=== PATIENT | female | born 1990 | race Caucasian/White ===

== ENCOUNTER 2018-03-28 18:30 | Emergency (ER) | payer SELFPAY ==
--- NOTE | 2018-03-28 18:36 | ED.SKABFB ---
HPI - Skin/Abscess/Foreign Bdy <LEXI Erwin - Last Filed: 03/28/18 22:37> General Chief complaint: Skin/Abscess/Foreign Body Stated complaint: ABCESSES UNDER LEFT ARM Time Seen by Provider: 03/28/18 18:36 History of Present Illness HPI narrative: 27-year-old female here for complaint of having red sore a bumps to her left axillary area over the past 3 days. She reports that she has had purulent drainage from that area over the past couple of days. No trauma to the area that she knows of. She denies any previous history of having abscesses. She denies any fevers or chills. Positive p.o. intake no nausea or vomiting. She denies any other complaints. Increased pain with movement of the left arm and palpation to left axillary area. Related Data Previous Rx's Medication Instructions Recorded meloxicam [Mobic] 7.5 mg PO BIDCC PRN #12 tab 10/20/17 clindamycin HCl 300 mg PO QID #27 cap 03/28/18 hydrocodone-acetaminophen [Centuria] 1 tab PO Q4-6H PRN #5 tab 03/28/18 Allergies Allergy/AdvReac Type Severity Reaction Status Date / Time No Known Drug Allergies Allergy Verified 03/28/18 18:54 Review of Systems <LEXI Erwin - Last Filed: 03/28/18 22:37> Constitutional Denies chills, Denies fever(s), Denies lethargy and Denies weakness Eyes Denies change in vision, Denies eye discharge, Denies irritation and Denies loss of vision ENT Ears, Nose, Mouth, and Throat: Denies change in voice, Denies neck pain and Denies sore throat Cardiovascular Denies chest pain, Denies irregular heart rhythm, Denies lightheadedness, Denies palpitations, Denies dyspnea, Denies dyspnea on exertion and Denies orthopnea Respiratory Denies cough, Denies dyspnea, Denies dyspnea on exertion and Denies wheezing Gastrointestinal Gastrointestinal: Denies abdominal pain, Denies change in bowel habits, Denies diarrhea, Denies nausea and Denies vomiting Genitourinary Denies hematuria, Denies flank pain, Denies urinary incontinence and Denies urinary urgency Musculoskeletal Denies neck pain Integumentary/Breasts Comments: Abscess to left axillary area Neurologic Denies confusion, Denies loss of vision and Denies weakness Psychiatric Denies anxiety, Denies confusion, Denies depression, Denies homicidal ideation and Denies suicidal ideation Endocrine Denies palpitations Allergic/Immunologic Denies wheezing Exam <LEXI Erwin - Last Filed: 03/28/18 22:37> Initial Vital Signs Initial Vital Signs: Vital Signs Temperature 98.4 F 03/28/18 18:47 Pulse Rate 95 H 03/28/18 18:47 Respiratory Rate 14 03/28/18 18:47 Blood Pressure 128/72 H 03/28/18 18:47 Pulse Oximetry 99 03/28/18 18:47 Const General: cooperative and well developed Nutritional Appearance: well nourished Orientation: alert, awake, oriented x3 and not confused HENCT Mouth: oral mucosae normal and moist mucous membranes Eyes General: appearance normal, both eyes and all related structures Eyelids: eyelids normal Conjunctivae: conjunctivae normal Sclera: sclerae normal Pupils: PERRL EOM: EOM intact bilaterally Resp Effort & Inspection: normal respiratory effort, able to speak in complete sentences, no respiratory distress and no use of accessory muscles Auscultation: clear to auscultation bilaterally, no rales, no rhonchi and no wheezes Cardio Rate: regular rate Rhythm: regular rhythm Heart Sounds: no click, no gallops, no murmurs and no rubs Pulses: normal peripheral pulses Skin General: No jaundice and No petechiae Other: Left axillary area with a few pustules noted on exam with erythema. Loculated area of induration and fluctuance palpated to the axillary area. Distal sensation is intact. Distal range of motion is intact. Distal pulses are intact. Area of loculation as approximately 3 by 4 cm. Two pustules approximately 1 cm each in the center of the loculation Neuro General: alert, oriented x3, gait normal and no focal motor deficits Speech: speech normal <Oriana Torres DO - Last Filed: 03/29/18 00:24> Initial Vital Signs Initial Vital Signs: Vital Signs Temperature 98.4 F 03/28/18 18:47 Pulse Rate 95 H 03/28/18 18:47 Respiratory Rate 14 03/28/18 18:47 Blood Pressure 128/72 H 03/28/18 18:47 Pulse Oximetry 99 03/28/18 18:47 Procedures <LEXI Erwin - Last Filed: 03/28/18 22:37> Abscess I/D Site: other (Axilla) Side (if applicable): left Local Anesthetic: lidocaine 1% Amount of anesthesia used (mL): 3.5 Technique: incised with #11 blade Amount of fluid expressed (mL): 6 Irrigation: Yes Packing used?: none Complications: pain Course <LEXI Erwin - Last Filed: 03/28/18 22:37> Orders Ordered: ED Orders 03/28/18 19:50 Wound Culture and Gram Stain Stat Discontinued Medications Hydrocodone Bitart/Acetaminophen (Centuria 5/325) 1 tab PO NOW ONE Stop: 03/28/18 19:29 Last Admin: 03/28/18 19:29 Dose: 1 tab Clindamycin HCl (Cleocin) 300 mg PO NOW ONE Stop: 03/28/18 20:05 Last Admin: 03/28/18 20:09 Dose: 300 mg Vital Signs - 8 hr 03/28/18 18:47 03/28/18 18:54 03/28/18 20:28 Temperature 98.4 F 98.4 F Pulse Rate 95 H 95 H 81 Respiratory Rate 14 14 16 Blood Pressure 123/74 H Blood Pressure [Right Arm] 128/72 H Pulse Oximetry 99 99 100 <Oriana Torres DO - Last Filed: 03/29/18 00:24> Orders Ordered: ED Orders 03/28/18 19:50 Wound Culture and Gram Stain Stat Discontinued Medications Hydrocodone Bitart/Acetaminophen (Centuria 5/325) 1 tab PO NOW ONE Stop: 03/28/18 19:29 Last Admin: 03/28/18 19:29 Dose: 1 tab Clindamycin HCl (Cleocin) 300 mg PO NOW ONE Stop: 03/28/18 20:05 Last Admin: 03/28/18 20:09 Dose: 300 mg Vital Signs - 8 hr 03/28/18 18:47 03/28/18 18:54 03/28/18 20:28 Temperature 98.4 F 98.4 F Pulse Rate 95 H 95 H 81 Respiratory Rate 14 14 16 Blood Pressure 123/74 H Blood Pressure [Right Arm] 128/72 H Pulse Oximetry 99 99 100 MDM - Skin/Abscess/Foreign Bdy <LEXI Erwin - Last Filed: 03/28/18 22:37> [facility] Narrative Medical decision making narrative: Abscesses to the left axillary area were opened with a 11. Blade. Culture was obtained and is pending. Medium amount of purulent drainage was removed. Culture was obtained and is pending. She is placed on clindamycin. Recommend follow up with primary care provider later this week for re-evaluation to ensure is improving and not worsening. [id number] Tylenol Motrin as needed for any discomfort. Small amount of Centuria is prescribed for breakthrough pain. For any worsening symptoms return to the emergency room. Discharge Plan Departure Patient Disposition: Home, Self-Care Clinical Impression: Abscess of axilla, left Discharge Date/Time: 03/28/18 20:32 Interventions: ED Discharge Assessment Last Done: 03/28/18 20:28 Instructions: DI for Skin Abscess Activity Restrictions/Additional Instructions: Abscess to the left armpit area was incised and drained today to remove the purulent material. You have been placed on an antibiotic called clindamycin use as directed. Follow up with her primary care provider in the next few days for re-evaluation. Warm moist compresses to the area couple times a day for the next couple of days use [id number] Tylenol or Motrin as needed for any discomfort. Small amount of Centuria is prescribed for breakthrough pain use as directed no driving while on the Centuria. For any worsening symptoms return to the emergency room. Prescriptions: New clindamycin HCl 300 mg capsule 300 mg PO QID Qty: 27 RF: 0 hydrocodone-acetaminophen [Centuria] 5-325 mg tablet 1 tab PO Q4-6H PRN (Reason: pain) Qty: 5 RF: 0 No Action meloxicam [Mobic] 7.5 MG tablet 7.5 mg PO BIDCC PRNQty: 12 RF: 0 Referrals: [facility] [Provider Group] <Oriana Torres DO - Last Filed: 03/29/18 00:24> Cosign ED Attending Kaeature Attestation: I was immediately available in the department for consultation. Documentation has been reviewed. I agree with assessment and plan.
[2018-03-28 18:47] VITALS: BP 128/72; PULSE 95; RESP 14; TEMP 36.9; O2SAT 99
[2018-03-28 18:54] VITALS: PULSE 95; RESP 14; TEMP 36.9; O2SAT 99; BMI 31.4
[2018-03-28] MEDS: HYDROCODONE/ACET 5/325 TABLET 1 TAB PO (19:29)
--- NOTE | 2018-03-28 20:03 | ED_ITS ---
HPI - Skin/Abscess/Foreign Bdy <LEXI Erwin - Last Filed: 03/28/18 22:37> General Chief complaint: Skin/Abscess/Foreign Body Stated complaint: ABCESSES UNDER LEFT ARM Time Seen by Provider: 03/28/18 18:36 History of Present Illness HPI narrative: 27-year-old female here for complaint of having red sore a bumps to her left axillary area over the past 3 days. She reports that she has had purulent drainage from that area over the past couple of days. No trauma to the area that she knows of. She denies any previous history of having abscesses. She denies any fevers or chills. Positive p.o. intake no nausea or vomiting. She denies any other complaints. Increased pain with movement of the left arm and palpation to left axillary area. Related Data Previous Rx's Medication Instructions Recorded meloxicam [Mobic] 7.5 mg PO BIDCC PRN #12 tab 10/20/17 clindamycin HCl 300 mg PO QID #27 cap 03/28/18 hydrocodone-acetaminophen [[place]] 1 tab PO Q4-6H PRN #5 tab 03/28/18 Allergies Allergy/AdvReac Type Severity Reaction Status Date / Time No Known Drug Allergies Allergy Verified 03/28/18 18:54 Review of Systems <LEXI Erwin - Last Filed: 03/28/18 22:37> Constitutional Denies chills, Denies fever(s), Denies lethargy and Denies weakness Eyes Denies change in vision, Denies eye discharge, Denies irritation and Denies loss of vision ENT Ears, Nose, Mouth, and Throat: Denies change in voice, Denies neck pain and Denies sore throat Cardiovascular Denies chest pain, Denies irregular heart rhythm, Denies lightheadedness, Denies palpitations, Denies dyspnea, Denies dyspnea on exertion and Denies orthopnea Respiratory Denies cough, Denies dyspnea, Denies dyspnea on exertion and Denies wheezing Gastrointestinal Gastrointestinal: Denies abdominal pain, Denies change in bowel habits, Denies diarrhea, Denies nausea and Denies vomiting Genitourinary Denies hematuria, Denies flank pain, Denies urinary incontinence and Denies urinary urgency Musculoskeletal Denies neck pain Integumentary/Breasts Comments: Abscess to left axillary area Neurologic Denies confusion, Denies loss of vision and Denies weakness Psychiatric Denies anxiety, Denies confusion, Denies depression, Denies homicidal ideation and Denies suicidal ideation Endocrine Denies palpitations Allergic/Immunologic Denies wheezing Exam <LEXI Erwin - Last Filed: 03/28/18 22:37> Initial Vital Signs Initial Vital Signs: Vital Signs Temperature 98.4 F 03/28/18 18:47 Pulse Rate 95 H 03/28/18 18:47 Respiratory Rate 14 03/28/18 18:47 Blood Pressure 128/72 H 03/28/18 18:47 Pulse Oximetry 99 03/28/18 18:47 Const General: cooperative and well developed Nutritional Appearance: well nourished Orientation: alert, awake, oriented x3 and not confused HENWY Mouth: oral mucosae normal and moist mucous membranes Eyes General: appearance normal, both eyes and all related structures Eyelids: eyelids normal Conjunctivae: conjunctivae normal Sclera: sclerae normal Pupils: PERRL EOM: EOM intact bilaterally Resp Effort & Inspection: normal respiratory effort, able to speak in complete sentences, no respiratory distress and no use of accessory muscles Auscultation: clear to auscultation bilaterally, no rales, no rhonchi and no wheezes Cardio Rate: regular rate Rhythm: regular rhythm Heart Sounds: no click, no gallops, no murmurs and no rubs Pulses: normal peripheral pulses Skin General: No jaundice and No petechiae Other: Left axillary area with a few pustules noted on exam with erythema. Loculated area of induration and fluctuance palpated to the axillary area. Distal sensation is intact. Distal range of motion is intact. Distal pulses are intact. Area of loculation as approximately 3 by 4 cm. Two pustules approximately 1 cm each in the center of the loculation Neuro General: alert, oriented x3, gait normal and no focal motor deficits Speech: speech normal <Oriana Torres DO - Last Filed: 03/29/18 00:24> Initial Vital Signs Initial Vital Signs: Vital Signs Temperature 98.4 F 03/28/18 18:47 Pulse Rate 95 H 03/28/18 18:47 Respiratory Rate 14 03/28/18 18:47 Blood Pressure 128/72 H 03/28/18 18:47 Pulse Oximetry 99 03/28/18 18:47 Procedures <LEXI Erwin - Last Filed: 03/28/18 22:37> Abscess I/D Site: other (Axilla) Side (if applicable): left Local Anesthetic: lidocaine 1% Amount of anesthesia used (mL): 3.5 Technique: incised with #11 blade Amount of fluid expressed (mL): 6 Irrigation: Yes Packing used?: none Complications: pain Course <LEXI Erwin - Last Filed: 03/28/18 22:37> Orders Ordered: ED Orders 03/28/18 19:50 Wound Culture and Gram Stain Stat Discontinued Medications Hydrocodone Bitart/Acetaminophen ([place] 5/325) 1 tab PO NOW ONE Stop: 03/28/18 19:29 Last Admin: 03/28/18 19:29 Dose: 1 tab Clindamycin HCl (Cleocin) 300 mg PO NOW ONE Stop: 03/28/18 20:05 Last Admin: 03/28/18 20:09 Dose: 300 mg Vital Signs - 8 hr 03/28/18 18:47 03/28/18 18:54 03/28/18 20:28 Temperature 98.4 F 98.4 F Pulse Rate 95 H 95 H 81 Respiratory Rate 14 14 16 Blood Pressure 123/74 H Blood Pressure [Right Arm] 128/72 H Pulse Oximetry 99 99 100 <Oriana Torres DO - Last Filed: 03/29/18 00:24> Orders Ordered: ED Orders 03/28/18 19:50 Wound Culture and Gram Stain Stat Discontinued Medications Hydrocodone Bitart/Acetaminophen ([place] 5/325) 1 tab PO NOW ONE Stop: 03/28/18 19:29 Last Admin: 03/28/18 19:29 Dose: 1 tab Clindamycin HCl (Cleocin) 300 mg PO NOW ONE Stop: 03/28/18 20:05 Last Admin: 03/28/18 20:09 Dose: 300 mg Vital Signs - 8 hr 03/28/18 18:47 03/28/18 18:54 03/28/18 20:28 Temperature 98.4 F 98.4 F Pulse Rate 95 H 95 H 81 Respiratory Rate 14 14 16 Blood Pressure 123/74 H Blood Pressure [Right Arm] 128/72 H Pulse Oximetry 99 99 100 MDM - Skin/Abscess/Foreign Bdy <LEXI Erwin - Last Filed: 03/28/18 22:37> [facility] Narrative Medical decision making narrative: Abscesses to the left axillary area were opened with a 11. Blade. Culture was obtained and is pending. Medium amount of purulent drainage was removed. Culture was obtained and is pending. She is placed on clindamycin. Recommend follow up with primary care provider later this week for re-evaluation to ensure is improving and not worsening. Over-the- counter Tylenol Motrin as needed for any discomfort. Small amount of [place] is prescribed for breakthrough pain. For any worsening symptoms return to the emergency room. Discharge Plan Departure Patient Disposition: Home, Self-Care Clinical Impression: Abscess of axilla, left Discharge Date/Time: 03/28/18 20:32 Interventions: ED Discharge Assessment Last Done: 03/28/18 20:28 Instructions: DI for Skin Abscess Activity Restrictions/Additional Instructions: Abscess to the left armpit area was incised and drained today to remove the purulent material. You have been placed on an antibiotic called clindamycin use as directed. Follow up with her primary care provider in the next few days for re-evaluation. Warm moist compresses to the area couple times a day for the next couple of days use [id number] Tylenol or Motrin as needed for any discomfort. Small amount of [place] is prescribed for breakthrough pain use as directed no driving while on the [place]. For any worsening symptoms return to the emergency room. Prescriptions: New clindamycin HCl 300 mg capsule 300 mg PO QID Qty: 27 RF: 0 hydrocodone-acetaminophen [[place]] 5-325 mg tablet 1 tab PO Q4-6H PRN (Reason: pain) Qty: 5 RF: 0 No Action meloxicam [Mobic] 7.5 MG tablet 7.5 mg PO BIDCC PRNQty: 12 RF: 0 Referrals: [facility] [Provider Group] <Oriana Torres DO - Last Filed: 03/29/18 00:24> Cosign ED Attending Kaeature Attestation: I was immediately available in the department for consultation. Documentation has been reviewed. I agree with assessment and plan.
[2018-03-28] MEDS: CLINDAMYCIN 150 MG CAPSULE 300 MG PO (20:09)
[2018-03-28 20:28] VITALS: BP 123/74; PULSE 81; RESP 16; O2SAT 100
== END 2018-03-28 20:32 | disposition home or self-care (01) ==
PROVIDERS: Emergency Provider Nurse Practitioner Family
DX: L02.412 Cutaneous abscess of left axilla (principal)
CPT/HCPCS: 10060; 87070; 87075; 87077; 87147; 87186; 87205; 99282; 99283